=== PATIENT | female | born 1965 | race African-American/Black ===

== ENCOUNTER 2016-05-27 16:19 | Emergency (ER) | payer OTHER ==
[2016-05-27] MEDS ORDERED: PHENERGAN ONE (16:52)
--- NOTE | 2016-05-27 18:08 | PROVIDER DOCUMENTATION ---
HPI-Musculoskeletal Pain/Inj - GENERAL Chief Complaint: General Adult Stated Complaint: PELVIC HURTS Time Seen by Provider: 05/27/16 16:33 Source: patient - HX OF PRESENT ILLNESS-MUSKULOSKELTAL Nature of Presenting Problem: 51 y/o BF c/o L hip pain x 5-6 months. Pt states she fell in February and can only take baby steps due to pain. Reports inability to walk prior to that. Denies any numbness/tingling, bowel/bladder dysfunction, back pain. States pain to inner L hip. Review of Systems - Adult - REVIEW OF SYSTEMS - ADULT Constitutional: reports: no symptoms reported. denies: chills, fever Eyes: reports: no symptoms reported. denies: blurred vision, double vision Ears, Nose, Mouth & Throat: reports: no symptoms reported. denies: ear pain, nose pain Cardiovascular: reports: no symptoms reported. denies: chest pain, palpitations Respiratory: reports: no symptoms reported. denies: dyspnea on exertion, shortness of breath Gastrointestinal: reports: no symptoms reported. denies: abdominal pain, nausea , vomiting Genitourinary: reports: no symptoms reported. denies: dysuria, frequency Musculoskeletal: reports: see HPI, joint pain. denies: back pain, neck pain Integumentary: reports: no symptoms reported. denies: nail changes, rash Neurological: reports: no symptoms reported. denies: numbness, paresthesia Psychiatric: reports: no symptoms reported Endocrine: reports: no symptoms reported. denies: cold intolerance, heat intolerance Hematologic/Lymphatic: reports: no symptoms reported. denies: easy bruising, prolonged bleeding Allergic/Immunologic: reports: no symptoms reported All Other Systems: Reviewed and Negative Past History - Adult - PAST MEDICAL HISTORY-ADULT Review of Records: reports: Nursing Assessment Review, Medications Reviewed Major Childhood Illnesses: reports: denies history Cardiovascular: reports: CHF, HTN Respiratory: reports: asthma, COPD, other (on O2 at home) Obstetrical/Gynecological: reports: denies history Genitourinary: reports: kidney disease Musculoskeletal: reports: arthritis, chronic pain, osteoporosis Psychiatric: reports: anxiety, depression Endocrine/Immune: reports: Diabetes Other Conditions: reports: denies history - PRIOR SURGERIES/PROCEDURES Surgical/Procedure History: reports: hernia repair, bowel surgery (colon polyps) , orthopedic (extremity) (right knee/left shoulder), other (breast reduction) - PRIOR HOSPITALIZATIONS Prior Hospitalizations: reports: none - IMMUNIZATION STATUS Childhood Immunizations: See Nurse Assessment Flu Vaccine: See Nurse Assessment - FAMILY HISTORY Family History: reviewed, not pertinent - SOCIAL HISTORY Smoking: cigarettes, greater than 1 pack/day Provider spent 3-5 mins advising pt. on dangers of tobacco.: Discussed manners to quit use, and f/u contacts for add'l counseling. Physical Exam-Injury Related - Physical Exam-Injury Related Initial Vital Signs Reviewed: Yes General Appearance: alert, mild distress, obese Eyes: pink conjunctivae Head, Ears, Nose, Mouth & Throat: normocephalic/atraumatic, moist mucous membranes Neck: normal inspection Respiratory: no respiratory distress Cardiovascular: normal peripheral pulses, regular rate, rhythm Peripheral Pulses: dorsalis-pedis (R): 1+, dorsalis-pedis (L): 1+ Extremity: normal inspection, no pedal edema, tenderness (medial L hip with anterior pelvis pain). negative: abnormal NV exam, pulse deficit Integumentary: normal color, warm/dry, blanching Neurologic: negative: aphasia, motor weakness, sensory deficit Psych/Mental Status: normal mood/affect, normal thought content, normal thought process, oriented x 3 Progress - PLAN OF CARE/RESULTS Progress/Plan/Lab Results: Discussed results and f/u with pt. - XRAY 1 XRAY: Bilateral XRAY Study: Pelvis, Hip XRAY Interpretation: unable to evaluate hips or pelvis due to body habitus - CT/MRI 1 CT Study: Pelvis Impression: See EMR Report (severe osteoarthritis at bilateral hips; no fracture or dislocation -per Dr. Dean) Departure - Departure Time of Disposition Order: [id number] DIAGNOSIS: Osteoarthritis Qualifiers: Osteoarthritis location: hip Osteoarthritis type: unspecified Laterality: bilateral Qualified Code(s): M16.0 - Bilateral primary osteoarthritis of hip Disposition: HOME 01 Certified Medical Emergency: Emergent Condition: Stable Additional Instructions: Follow up with specialist or PCP for further management. Heat or ice to areas as needed. ED Follow Up Instructions: You have been treated by a care provider in the Emergency Department. These instructions are being provided to you so you can have an understanding of how to care for yourself upon discharge. Upon discharge from the Emergency Department, you are responsible for making arrangements for follow-up care by a physician of your choice. Take all prescribed medications as directed. Return to the Emergency Department immediately for any new or worsening symptoms. You may call the Physician Referral phone number at [phone] to obtain a list of Physicians who are taking new patients. Prescriptions: Acetaminophen/Diphenhydramine [Percogesic Extra Str Caplet] 1 each PO Q6H PRN PRN #30 tablet PRN Reason: Pain Referrals: Juan Luis Pearce MD [Primary Care Provider] - Daryn Pyle MD [STAFF PHYSICIAN] - Attestation - Physician/ DONATO Attestation Patient care was provided by Advanced Practice Provider:: Yes Advanced Practice Provider:: Myrtle Dalal Advanced Practice Provider documentation review:: The Mid-level provider documentation, treatment plan and medical decision making was reviewed by the physician who agrees with all treatment and medical decision making by the MLP.
[2016-05-27] MEDS ORDERED: MORPHINE IM ONE (18:25)
[2016-05-27] MEDS ORDERED: ZOFRAN ODT PO ONE (18:25)
[2016-05-27] MEDS ORDERED: DILAUDID IM ONE (19:54)
--- NOTE | 2016-05-27 20:19 | Diag Imaging Result Document ---
PROCEDURE NAME: PELVIS W/O CONTRAST - 05/27/2016 STUDY: CT bony pelvis without contrast. Neither femoral head is dislocated. No fracture to either hip. No widening to the public symphysis or separation at the sacroiliac joints. No fracture to the pelvis. There are longstanding arthritic changes with joint space narrowing and bone spurring to the acetabular and femoral heads. Acetabular bone spurring may be causing impingement. There are cysts in the acetabular and femoral heads. IMPRESSION: 1. No acute bony injury. 2. Prominent arthritic changes to each hip. A preliminary report was given at 7:21 p.m.
[2016-05-27 20:25] VITALS: BP 150/88
--- NOTE | 2016-05-28 07:49 | Diag Imaging Result Document ---
PROCEDURE NAME: XRAY HIP W/PELVIS BILAT 3-4VWS - 05/27/2016 PELVIS, RIGHT HIP, AND LEFT HIP: COMPARISON: 04/30/2016. FINDINGS: There is no obvious fracture. There is stable advanced osteoarthritis of the hips, worst on the left. IMPRESSION: Severe hip osteoarthritis.
== END 2016-05-27 20:25 | disposition home or self-care (01) ==
LOC: ED 16:19
DX: M16.0 Bilateral primary osteoarthritis of hip (principal); G89.29 Other chronic pain; M25.552 Pain in left hip; I50.9 Heart failure, unspecified; I10 Essential (primary) hypertension; J44.9 Chronic obstructive pulmonary disease, unspecified; E11.9 Type 2 diabetes mellitus without complications; Z79.899 Other long term (current) drug therapy; M81.0 Age-related osteoporosis without current pathological fracture; E66.9 Obesity, unspecified; F17.210 Nicotine dependence, cigarettes, uncomplicated; Z71.6 Tobacco abuse counseling; Z99.81 Dependence on supplemental oxygen
CPT/HCPCS: 72192; 73522; J1170; J2270; J2550